=== PATIENT | female | born 1965 | race Caucasian/White ===

== ENCOUNTER → 2019-03-09 14:10 | Outpatient (CLI) | payer OTHER, SELFPAY ==
--- NOTE | ~2019-03-09 | XR_ITS ---
EXAMINATION: XR wrist RT min 3V EXAM DATE: 03/09/2019 14:20 INDICATION: No known recent injury provided at this time. Pain of the right wrist. TECHNIQUE: Right wrist frontal, frontal with ulnar deviation, oblique and lateral projections obtain ed and reviewed. There is no prior study for comparison. FINDINGS: Right wrist scapholunate joint space is maintained. There are no acute fractures or disloca tions identified. There is no subcutaneous gas. The soft tissue is unremarkable. There are no rad iopaque foreign bodies. IMPRESSION: 1. Unremarkable XR wrist RT min 3V exam. Reviewed, dictated and finalized at location A. [facility]
== END ==
PROVIDERS: PCP Family Medicine; Visit Provider Family Medicine
DX: M19.031 Primary osteoarthritis, right wrist (principal)
CPT/HCPCS: 73110

== ENCOUNTER 2019-11-17 15:31 | Outpatient (CLI) | payer OTHER, SELFPAY ==
--- NOTE | ~2019-11-17 | MM_ITS ---
EXAMINATION: MM screening jonathan BI w vonnie HISTORY: Screening mammogram TECHNIQUE: Craniocaudal and mediolateral oblique 3-D tomosynthesis images were obtained and synthetic 2-D images were generated. CAD analysis was submitted and interpreted. COMPARISON: 10/30/2018 diagnostic right digital mammogram 10/21/2018, 10/17/2017, 10/16/2016 bilateral digital screening mammogram examinations BREAST PARENCHYMAL COMPOSITION: The breasts are heterogeneously dense, which may obscure small masses . FINDINGS: Possible new opacity in the posterior outer left breast on CC projection; recommend diagnos tic left mammogram, with ultrasound if required. Otherwise there is no evidence of suspicious mass, calcification, or architectural distortion to sugg est malignancy in either breast. There has been no suspicious interval change. IMPRESSION: 1. Possible new opacity in posterior outer left breast on cc view 2. Diagnostic left mammogram is recommended, with ultrasound if required. BI-RADS Category 0: Incomplete: Needs additional imaging evaluation. Reviewed, dictated and finalized at location A.
== END 2019-11-17 15:32 | disposition home or self-care (01) ==
LOC: ANHIMG 15:33
PROVIDERS: PCP Family Medicine; Visit Provider Obstetrics & Gynecology
DX: Z12.31 Encounter for screening mammogram for malignant neoplasm of breast (principal); R92.8 Other abnormal and inconclusive findings on diagnostic imaging of breast
CPT/HCPCS: 77063; 77067

== ENCOUNTER 2019-12-14 12:37 | Outpatient (CLI) | payer OTHER, SELFPAY ==
--- NOTE | ~2019-12-14 | MMUS_ITS ---
EXAMINATION: MM diagnostic mammo unilat LT, US breast LT limited HISTORY: Possible new opacity in posterior outer left breast on screening craniocaudal view of 020 TECHNIQUE: Additional 3-D tomosynthesis images of the left breast were performed and synthetic 2-D im ages were generated. CAD analysis was submitted and interpreted. High resolution left upper outer marcelino drant and left lower outer quadrant breast ultrasound was performed. COMPARISON: 11/17/2019, 10/21/2018, 10/17/2017 bilateral digital screening mammogram examinations FINDINGS: MAMMOGRAPHIC FINDINGS: No reproducible suspicious mass is detected mammographically. No architectural distortion, malignant calcification, skin thickening or retraction is noted. ULTRASOUND: 12:00 3 cm from nipple: Parallel circumscribed 5 x 10.7 x 6.0 mm sonolucency, without internal vascul arity or suspicious shadowing, likely a cyst 2:00 4 cm from nipple: 3.5 x 4.4 x 7.3 mm sonolucency with through transmission, consistent with mini rodolfo septated cyst 2:00 7 cm from nipple: Cluster of cysts measuring approximately 5.7 x 7.6 x 13.7 mm, with through tra nsmission, posterior enhancement. No suspicious solid lesion or shadowing is evident. IMPRESSION: 1. No mammographic evidence of malignancy 2. Routine mammographic screening is recommended. BI-RADS Category 2: Benign finding(s). Reviewed, dictated and finalized at location A. IMPRESSION: 1. No mammographic evidence of malignancy 2. Routine mammographic screening is recommended. BI-RADS Category 2: Benign finding(s).
== END 2019-12-14 12:38 | disposition home or self-care (01) ==
LOC: ANHIMG 12:41
PROVIDERS: PCP Family Medicine; Visit Provider Obstetrics & Gynecology
DX: R92.8 Other abnormal and inconclusive findings on diagnostic imaging of breast (principal)
CPT/HCPCS: 76642; 77065

== ENCOUNTER → 2020-05-19 16:26 | Outpatient (CLI) | payer OTHER, SELFPAY ==
--- NOTE | ~2020-05-19 | XR_ITS ---
XR ankle LT 2V DATE: 05/19/2020 16:37 INDICATION: Left ankle and foot pain. No injury. TECHNIQUE: AP and lateral views COMPARISON: None FINDINGS: Prominent plantar and posterior calcaneal enthesopathy. No fracture or dislocation of the ankle or disruption of the ankle mortise. No periosteal reaction or bone destruction. IMPRESSION: Prominent plantar and posterior calcaneal enthesopathy Reviewed, dictated and finalized at location B.
== END ==
PROVIDERS: PCP Physician Assistant; Visit Provider Physician Assistant
DX: M77.32 Calcaneal spur, left foot (principal)
CPT/HCPCS: 73600

== ENCOUNTER 2020-12-13 14:38 | Outpatient (CLI) | payer OTHER, SELFPAY ==
--- NOTE | ~2020-12-13 | MM_ITS ---
EXAMINATION: MM screening jonathan BI w vonnie HISTORY: Screening mammogram TECHNIQUE: Craniocaudal and mediolateral oblique 3-D tomosynthesis images were obtained and synthetic 2-D images were generated. CAD analysis was submitted and interpreted. COMPARISON: 12/14/2019 diagnostic left mammogram and limited left breast ultrasound 11/17/2019 bilateral digital screening mammogram 10/30/2018 diagnostic right mammogram and limited right breast ultrasound 10/21/2018, 10/17/2017, 10/16/2016 bilateral digital screening mammogram examinations BREAST PARENCHYMAL COMPOSITION: The breasts are heterogeneously dense, which may obscure small masses . FINDINGS: There is no evidence of suspicious mass, calcification, or architectural distortion to sugg est malignancy in either breast. There has been no suspicious interval change. IMPRESSION: 1. No mammographic evidence of malignancy. 2. Recommend routine screening mammography in one year. BI-RADS Category 1: Negative Reviewed, dictated and finalized at location A.
== END 2020-12-13 14:39 | disposition home or self-care (01) ==
PROVIDERS: PCP Family Medicine; Visit Provider Family Medicine
DX: Z12.31 Encounter for screening mammogram for malignant neoplasm of breast (principal)
CPT/HCPCS: 77063; 77067

== ENCOUNTER 2021-01-30 07:43 | Outpatient (CLI) | payer OTHER, SELFPAY ==
--- NOTE | ~2021-01-30 | DEXA_ITS ---
Bone Density Report Name: Lorene Gould Age: 56 Sex: Female Ethnicity: White Date of : 1965 Indication: postmenopausal; hysterectomy; Referring Provider: CLIFTON BARROS Study: Bone densitometry was performed. Exam Date: January 30, 2021 Accession number: [id number] Bone Density: Region BMD T-score Z-score Classification AP Spine (L1-L4) 0.875 -1.6 -0.4 Osteopenia Femoral Neck (Left) 0.655 -1.7 -0.6 Osteopenia Total Hip (Left) 0.864 -0.6 0.1 Normal Total Hip Bilateral Avg 0.830 -0.9 -0.2 Normal Femoral Neck (Right) 0.675 -1.6 -0.5 Osteopenia Total Hip (Right) 0.795 -1.2 -0.5 Osteopenia World Health Organization criteria for BMD impression classify patients as: Normal (T-score at or above -1.0), Osteopenia (T-score between -1.0 and -2.5), or Osteoporosis (T-score at or below -2.5). 10-year Fracture Risk(1): Major Osteoporotic Fracture 7.5% Hip Fracture 0.7% Reported Risk Factors: [place] (), Neck BMD=0.655, BMI=25.0 (1) FRAX(R) Version 3.08. Fracture probability calculated for an untreated patient. Fracture probability may be lower if the patient has received treatment. Clinical Information Provided by Patient: Has the following medical conditions: Hysterectomy Patient maximum height was 65 Menopause Age: 45 Onset of menses at age 15 Number of children 0 Impression: The patient has low bone mass, based on the Left Femoral Neck T-score. The patient has an estimated ten-year risk of hip fracture of 0.7% and an estimated ten-year risk of major fracture of 7.5%, based on the WHO FRAX algorithm. Discussion: BONE DENSITY IS LOW AT ONE OR MORE SKELETAL SITES. This patient's lowest T-score is low at one or more skeletal sites. It meets the World Health Organization's (WHO) criteria for ?low bone mass? (T-score between -1.0 and -2.5). The patient's 10-year risk of fracture as calculated by FRAX is less than the threshold where pharmacological therapy is recommended by the National Osteoporosis Foundation (NOF). However, all treatment decisions require clinical judgment and consideration of individual patient factors, including patient preferences, comorbidities, previous drug use, risk factors not captured in the FRAX model (e.g., frailty, falls, vitamin D deficiency, increased bone turnover, interval significant decline in bone density) and possible under or overestimation of fracture risk by FRAX. The patient should follow a healthful lifestyle (good nutrition with adequate calcium and vitamin D, and appropriate weight-bearing exercise). Follow-Up: Consider repeating this study in 2 to 3 years to reassess this patient's status, or sooner if there is some new clinical indication. Reported by: MAIKEL on 01/30/2021 8:08:00 AM. Reviewed,
== END 2021-01-30 07:44 | disposition home or self-care (01) ==
PROVIDERS: PCP Family Medicine; Visit Provider Family Medicine
DX: Z78.0 Asymptomatic menopausal state (principal); Z79.890 Hormone replacement therapy; M85.88 Other specified disorders of bone density and structure, other site; M85.852 Other specified disorders of bone density and structure, left thigh; M85.851 Other specified disorders of bone density and structure, right thigh
CPT/HCPCS: 77080

== ENCOUNTER 2021-01-31 15:41 | Outpatient (CLI) | payer OTHER, SELFPAY ==
[2021-01-31 16:07] LABS: Alanine Aminotransferase 17 U/L (4-35); Albumin Level 4.5 g/dL (3.5-5.1); Alkaline Phosphatase 51 U/L (38-126); Anion Gap 5 mmol/L (8-16); Aspartate Amino Transferase 24 U/L (14-36); Bilirubin,Total 0.2 mg/dL (0.2-1.3); Blood Urea Nitrogen 12 mg/dL (7-17); Carbon Dioxide 25 mmol/L (22-30); Chloride 99 mmol/L (98-107); Estimated Glomerular Filt Rate > 60; Glucose 99 mg/dL (65-110); Potassium 3.9 mmol/L (3.4-5.0); Sodium 129 mmol/L (137-145)
[2021-01-31 16:26] LABS: Vitamin D 25 Hydroxy 41.1 ng/mL
== END 2021-01-31 15:42 | disposition home or self-care (01) ==
LOC: ANHLAB 15:43
PROVIDERS: PCP Family Medicine; Visit Provider Family Medicine
DX: M85.80 Other specified disorders of bone density and structure, unspecified site (principal); Z78.0 Asymptomatic menopausal state
CPT/HCPCS: 36415; 80053; 82306; 84443

== ENCOUNTER 2021-02-01 15:42 | Outpatient (CLI) | payer OTHER, SELFPAY ==
[2021-02-01 17:16] LABS: Anion Gap 7 mmol/L (8-16); Blood Urea Nitrogen 13 mg/dL (7-17); Calcium 8.8 mg/dL (8.4-10.2); Carbon Dioxide 26 mmol/L (22-30); Chloride 100 mmol/L (98-107); Estimated Glomerular Filt Rate > 60; Glucose 89 mg/dL (65-110); Potassium 3.8 mmol/L (3.4-5.0); Sodium 133 mmol/L (137-145)
== END 2021-02-01 15:43 | disposition home or self-care (01) ==
LOC: ANHLAB 15:44
PROVIDERS: PCP Family Medicine; Visit Provider Family Medicine
DX: E87.1 Hypo-osmolality and hyponatremia (principal)
CPT/HCPCS: 36415; 80048

== ENCOUNTER 2021-06-16 00:39 | Day surgery (SDC) | payer OTHER, SELFPAY ==
[2021-05-31 15:07] VITALS: BMI 25.8
[2021-06-16 06:55] VITALS: BP 152/85; PULSE 112; RESP 18; TEMP 36.1; O2SAT 100; BMI 29.1
[2021-06-16] MEDS: LACTATED RINGERS 1,000 ML 150 ML IV CONT (07:15)
--- NOTE | 2021-06-16 07:20 | WPDGICN ---
Assessment and Plan Assessment and plan (1) Family hx of colon cancer: Code(s): Z80.0 - Family history of malignant neoplasm of digestive organs Status: Acute Assessment and Plan: Patient has a family history of colon polyps in her mother. Grandparents and uncle of had colon cancer. Plan is for surveillance colonoscopy at this time and consider this a 5 year intervals in the future. GI Consult Note Consult date/time: 06/16/21 07:20 HPI: Lorene Gould is a 56 year old female Presents for screening colonoscopy. Patient's current weight appetite and bowel movements are normal. Patient denies abdominal pain. She has had no bleeding. Family history is significant for an aunt and uncle with colon cancer. Her mother has had colon polyps. Patient presents today for neoplasia screening colonoscopy. [facility] Past Medical History Medical History Hormone replacement therapy (HRT) Osteopenia after menopause Surgical History Surgical History History of bilateral oophorectomy (~06/25/14) History of colonoscopy (~2010) History of hysterectomy (~06/25/14) Status post phlebectomy Family History Family History Other Carcinoma of colon Social History Social History (Updated 05/01/21 @ 10:01 by JHONATAN Lou) Smoking status: Never smoker Alcohol intake: never Substance use: never Substance use type: does not use Living arrangements: alone Spiritual care concerns: No Meds Home Medications and Allergies Home Medications Medication Instructions Recorded Confirmed Type estradiol 2 mg tablet 2 mg PO DAILY 03/09/19 06/16/21 History lisinopril 5 mg tablet See Rx Instructions .ROUTE 03/21/21 06/16/21 Rx .COMPLEX #90 tablet amoxicillin 500 mg capsule 500 mg PO Q8H #21 cap 05/30/21 06/16/21 Rx Allergies Allergy/AdvReac Type Severity Reaction Status Date / Time hydrocodone AdvReac Mild Nausea and Verified 06/16/21 07:04 Vomiting Vital Signs Vital Signs - 24 hr 06/16/21 06:55 Temperature 97.0 F L Pulse Rate 112 H Respiratory Rate 18 Blood Pressure 152/85 H Pulse Oximetry 100 Exam Narrative: physical exam patient is alert. Vital signs are stable. HEENT exam reveals no icterus. Lungs are clear to auscultation and percussion. Heart is without murmur or extra sounds. Abdominal exam bowel sounds are present soft nontender with no organomegaly. Digital external rectal exam is normal.
--- NOTE | 2021-06-16 07:45 | P.PNAN_ITS ---
Anes - Initial Pre Proc Eval Procedure: Operation Date: 06/16/21 08:00 Proposed Procedures p Screening Colonoscopy - Roger Rivas MD Date/Time: 06/16/21 07:45 Surgeon: Roger Rivas MD Pre Op Diagnosis: family hx colon polyps, neoplasm screening Patient Data Age: 56 Gender: F Height: 1.63 m Weight: 77 kg Last Vital Signs Temp 97.0 F L 06/16/21 06:55 Pulse 112 H 06/16/21 06:55 Resp 18 06/16/21 06:55 BP 152/85 H 06/16/21 06:55 Pulse Ox 100 06/16/21 06:55 Allergies Allergy/AdvReac Type Severity Reaction Status Date / Time hydrocodone AdvReac Mild Nausea and Verified 06/16/21 07:04 Vomiting Home Medications Medication Instructions Recorded Confirmed Type estradiol 2 mg tablet 2 mg PO DAILY 03/09/19 06/16/21 History lisinopril 5 mg tablet See Rx Instructions .ROUTE 03/21/21 06/16/21 Rx .COMPLEX #90 tablet amoxicillin 500 mg capsule 500 mg PO Q8H #21 cap 05/30/21 06/16/21 Rx Patient hx anesthesia problems: none Family hx anesthesia problems: none Results Review: All pre-operative results and documents have been reviewed as part of the pre-operative evaluation. [facility] Past Medical History Medical History Hormone replacement therapy (HRT) Osteopenia after menopause Surgical History Surgical History History of bilateral oophorectomy (~06/25/14) History of colonoscopy (~2010) History of hysterectomy (~06/25/14) Status post phlebectomy Family History Family History Other Carcinoma of colon Social History Social History (Updated 05/01/21 @ 10:01 by JHONATAN Lou) Smoking status: Never smoker Alcohol intake: never Substance use: never Substance use type: does not use Living arrangements: alone Spiritual care concerns: No Anes - Eval Final PreProcedure Day of Procedure 06/16/21 07:45 Patient weight: overweight Heart: regular rate and rhythm Lungs: clear to auscultation Airway: Mallampati scale class III Neurological: alert and oriented Last oral intake: >/= 8 hours ASA classification: II Emergent: no Anesthetic plan: proceed Anesthesia type and monitoring: general GIVS and standard monitoring Results Review: All pre-operative results and documents have been reviewed as part of the pre-operative evaluation. Informed Consent: The patient's anesthetic plan and its attendant risks and benefits were discussed with the patient/family/POA. Questions were solicited and answers provided to the satisfaction of the patient/family/POA.
[2021-06-16 08:08] VITALS: BP 96/55; PULSE 77; RESP 13; O2SAT 100
[2021-06-16 08:18] VITALS: BP 130/67; PULSE 74; RESP 16; O2SAT 100
[2021-06-16 08:28] VITALS: BP 126/62; PULSE 74; RESP 16; O2SAT 100
== END 2021-06-16 08:36 | disposition home or self-care (01) ==
PROVIDERS: PCP Family Medicine; Visit Provider Internal Medicine Gastroenterology
PROC: 0DJD8ZZ Inspection of Lower Intestinal Tract, Via Natural or Artificial Opening Endoscopic (ICD-10-PCS; CPT 45378; principal; 2021-06-16 08:00)
DX: Z12.11 Encounter for screening for malignant neoplasm of colon (principal); K64.8 Other hemorrhoids; Z83.71 Family history of colonic polyps; Z79.890 Hormone replacement therapy; Z80.0 Family history of malignant neoplasm of digestive organs
CPT/HCPCS: 45378; J2704; J7120

== ENCOUNTER → 2021-12-13 18:41 | Outpatient (CLI) | payer OTHER, SELFPAY ==
--- NOTE | ~2021-12-13 | XR_ITS ---
EXAMINATION: XR chest 2V 12/13/2021 18:50 INDICATION: Pneumonia. PROCEDURE: 2 View chest COMPARISON: No prior studies for comparison. FINDINGS: The lungs are clear. The cardiomediastinal silhouette is within normal limits. There are no pleural effusions. There is no pneumothorax suspected. IMPRESSION: 1: NO ACUTE CARDIOPULMONARY DISEASE. Reviewed, dictated and finalized at location A.
== END ==
PROVIDERS: PCP Family Medicine; Visit Provider Family Medicine
DX: J18.9 Pneumonia, unspecified organism (principal)
CPT/HCPCS: 71046

== ENCOUNTER 2022-02-03 07:50 | Outpatient (CLI) | payer OTHER, SELFPAY ==
[2022-02-03 08:22] LABS: Basophils Percent Auto 0.3 % (0.2-1.2); Eosinophils Absolute Auto 0.1 K/mm3 (0-0.3); Eosinophils Percent Auto 2.3 % (0-4.4); Hematocrit 37.9 % (37.0-47.0); Hemoglobin 12.8 g/dL (12.0-15.0); Immature Granulocyte Absolute 0.02 K/mm3 (0.00-0.031); Immature Granulocyte Percent A 0.3 % (0-0.5); Lymphocytes Absolute Auto 2.34 K/mm3 (0.9-3.2); Lymphocytes Percent Auto 38.7 % (18.3-44.2); Mean Corpuscular HGB Conc 33.8 g/dl (32-36); Mean Corpuscular Hemoglobin 33.5 pg (26-34); Mean Corpuscular Volume 99.2 fl (80-100); Monocytes Absolute Auto 0.5 K/mm3 (0.1-0.6); Monocytes Percent Auto 7.6 % (2.6-8.5); Neutrophils Absolute Auto 3.1 K/mm3 (1.3-6.7); Neutrophils Percent Auto 50.8 % (45.5-73.1); Platelet Count Result 347 k/mm3 (150-375); Red Blood Count 3.82 M/mm3 (4.2-5.4); Red Cell Distribution Width 12.5 % (11.5-14.5); White Blood Count 6.1 K/mm3 (4.5-10.0)
[2022-02-03 08:43] LABS: Alanine Aminotransferase 40 U/L (6-35); Albumin Level 4.1 g/dL (3.5-5.1); Alkaline Phosphatase 44 U/L (38-126); Anion Gap 5 mmol/L (8-16); Aspartate Amino Transferase 36 U/L (14-36); Bilirubin,Total 0.5 mg/dL (0.2-1.3); Blood Urea Nitrogen 17 mg/dL (7-17); Calcium 8.3 mg/dL (8.4-10.2); Carbon Dioxide 27 mmol/L (22-30); Chloride 104 mmol/L (98-107); Cholesterol 176 mg/dL (0-200); Estimated Glomerular Filt Rate > 60; Glucose 102 mg/dL (65-110); HDL Direct 67 mg/dL; Potassium 4.3 mmol/L (3.4-5.0); Sodium 136 mmol/L (137-145); Triglycerides 70 mg/dL (<150)
[2022-02-03 08:54] LABS: LDL Cholesterol Direct 82 mg/dL
== END 2022-02-03 07:51 | disposition home or self-care (01) ==
LOC: ANHLAB 07:52
PROVIDERS: PCP Family Medicine; Visit Provider Physician Assistant
DX: Z79.899 Other long term (current) drug therapy (principal); Z00.00 Encounter for general adult medical examination without abnormal findings
CPT/HCPCS: 36415; 80053; 80061; 84443; 85025

== ENCOUNTER 2022-02-21 08:03 | Outpatient (CLI) | payer OTHER, SELFPAY ==
[2022-02-21 18:36] LABS: Alanine Aminotransferase 32 U/L (6-35); Albumin Level 4.1 g/dL (3.5-5.1); Alkaline Phosphatase 46 U/L (38-126); Anion Gap 6 mmol/L (8-16); Aspartate Amino Transferase 40 U/L (14-36); Bilirubin,Total 0.3 mg/dL (0.2-1.3); Blood Urea Nitrogen 18 mg/dL (7-17); Calcium 8.9 mg/dL (8.4-10.2); Carbon Dioxide 30 mmol/L (22-30); Chloride 101 mmol/L (98-107); Estimated Glomerular Filt Rate > 60; Glucose 86 mg/dL (65-110); Potassium 4.3 mmol/L (3.4-5.0); Sodium 137 mmol/L (137-145)
== END 2022-02-21 08:04 | disposition home or self-care (01) ==
LOC: ANHGOSHLAB 08:05
PROVIDERS: PCP Family Medicine; Visit Provider Physician Assistant
DX: R74.8 Abnormal levels of other serum enzymes (principal); E87.1 Hypo-osmolality and hyponatremia
CPT/HCPCS: 36415; 80053

== ENCOUNTER 2022-03-12 07:59 | Outpatient (CLI) | payer OTHER, SELFPAY ==
[2022-03-12 19:56] LABS: Alanine Aminotransferase 26 U/L (6-35); Alkaline Phosphatase 46 U/L (38-126); Aspartate Amino Transferase 53 U/L (14-36); Bilirubin,Total 0.3 mg/dL (0.2-1.3)
== END 2022-03-12 08:00 | disposition home or self-care (01) ==
LOC: ANHGOSHLAB 08:00
PROVIDERS: PCP Family Medicine; Visit Provider Physician Assistant
DX: R74.8 Abnormal levels of other serum enzymes (principal)
CPT/HCPCS: 36415; 80076

== ENCOUNTER → 2022-03-17 08:20 | Outpatient (CLI) | payer OTHER, SELFPAY ==
--- NOTE | ~2022-03-17 | US_ITS ---
EXAMINATION: US abdomen limited DATE: 03/17/2022 08:42 INDICATION: Abnormal liver function tests. TECHNIQUE: Multiple grayscale and Doppler ultrasound images of the abdomen were obtained. COMPARISON: CT abdomen and pelvis 03/14/2018 FINDINGS: The visualized portions of the head, body, and tail of the pancreas are normal. The liver i s normal without focal lesion. No liver surface nodularity. There is normal flow in main portal vein. The gallbladder is normal in size and contains gallstones. No gallbladder wall thickening or sonogra phic Ly sign. The common duct is normal and measures 4 mm. IMPRESSION: 1. Cholelithiasis. No evidence of acute cholecystitis. Reviewed, dictated and finalized at location A. T ENGINEER
== END ==
PROVIDERS: PCP Family Medicine; Visit Provider Physician Assistant
DX: R74.8 Abnormal levels of other serum enzymes (principal); K80.20 Calculus of gallbladder without cholecystitis without obstruction
CPT/HCPCS: 76705

== ENCOUNTER 2022-03-19 15:24 | Outpatient (CLI) | payer OTHER, SELFPAY ==
[2022-03-19 18:14] LABS: Hepatitis B Surface Antigen Negative (Negative)
[2022-03-19 18:20] LABS: HAV RESULT Negative (Negative); Hepatitis B Core IgM Result Negative (Negative)
[2022-03-19 18:30] LABS: Hepatitis C Virus Antibody Negative (Negative)
== END 2022-03-19 15:25 | disposition home or self-care (01) ==
LOC: ANHGOSHLAB 15:25
PROVIDERS: PCP Family Medicine; Visit Provider Physician Assistant
DX: R74.8 Abnormal levels of other serum enzymes (principal)
CPT/HCPCS: 36415; 80074

== ENCOUNTER 2022-04-06 15:17 | Outpatient (CLI) | payer OTHER, SELFPAY ==
--- NOTE | ~2022-04-06 | MM_ITS ---
EXAMINATION: MM screening [facility] BI w vonnie HISTORY: Screening mammogram TECHNIQUE: Craniocaudal and mediolateral oblique 3-D tomosynthesis images were obtained and synthetic 2-D images were generated. CAD analysis was submitted and interpreted. COMPARISON: Serial mammogram and ultrasound examinations dating back to 10/21/2018 BREAST PARENCHYMAL COMPOSITION: The breasts are heterogeneously dense, which may obscure small masses . FINDINGS: Approximately 8 mm circumscribed low-density opacity in the posterior mid to upper outer le ft breast. Diagnostic left mammogram and left breast ultrasound examination are recommended. Otherwise there is no evidence of suspicious mass, calcification, or architectural distortion to sug gest malignancy in either breast. There has been no other suspicious interval change. IMPRESSION: 1. 8 mm mass, posterior mid to upper outer left breast 2. Diagnostic left mammogram and left breast ultrasound examination are recommended for better evalua tion BI-RADS Category 0: Incomplete: Needs additional imaging evaluation. Reviewed, dictated and finalized at location A. PATTERN MAKER IMPRESSION: 1. 8 mm mass, posterior mid to upper outer left breast 2. Diagnostic left mammogram and left breast ultrasound examination are recomme nded for better evaluation BI-RADS Category 0: Incomplete: Needs additional imaging evaluation.
== END 2022-04-06 15:18 | disposition home or self-care (01) ==
LOC: ANHIMG 15:20
PROVIDERS: PCP Family Medicine; Visit Provider Obstetrics & Gynecology
DX: Z12.31 Encounter for screening mammogram for malignant neoplasm of breast (principal); R92.8 Other abnormal and inconclusive findings on diagnostic imaging of breast
CPT/HCPCS: 77063; 77067

== ENCOUNTER 2022-04-24 13:11 | Outpatient (CLI) | payer OTHER, SELFPAY ==
--- NOTE | ~2022-04-24 | MMUS_ITS ---
EXAMINATION: MM diagnostic jonathan LT w vonnie, US breast LT limited HISTORY: 8 mm circumscribed low-density opacity in posterior mid to upper left breast was reported on April 06, 2022 screening mammogram TECHNIQUE: Additional 3-D tomosynthesis images of the left breast were performed and synthetic 2-D im ages were generated. CAD analysis was submitted and interpreted. High resolution upper outer quadrant and lower outer quadrant left breast ultrasound was performed. COMPARISON: April 06, 2022 bilateral screening mammogram FINDINGS: MAMMOGRAPHIC FINDINGS: Approximately 6 x 7 mm circumscribed multinodular density is noted in the posterior upper outer left breast (17/85 MLO Tomosynthesis image; 17/78 mL Tomosynthesis image). Approximately 2.5 mm circumscribed rounded opacity is also noted in the upper outer left breast (23/8 5 MLO Tomosynthesis image). Additional masses may be obscured by the heterogeneously dense stroma. ULTRASOUND: 1:00 7 cm from nipple: Approximately 3.5 mm sonolucency, likely a small cyst 2:00 7 cm from nipple: Cluster of cysts measuring approximately 5.9 x 8.3 x 6.1 mm, without internal vascularity or suspicious shadowing. No suspicious solid lesion or shadowing is detected in the upper outer or lower outer quadrants of th e left breast. IMPRESSION: 1. Benign findings 2. Routine annual mammographic screening is recommended. BI-RADS Category 2: Benign finding(s). Reviewed, dictated and finalized at location A. COILER IMPRESSION: 1. Benign findings 2. Routine annual mammographic screening is recommended. BI-RADS Category 2: Benign finding(s).
== END 2022-04-24 13:12 | disposition home or self-care (01) ==
PROVIDERS: PCP Family Medicine; Visit Provider Obstetrics & Gynecology
DX: R92.8 Other abnormal and inconclusive findings on diagnostic imaging of breast (principal)
CPT/HCPCS: 76642; 77061; 77065; G0279

== ENCOUNTER 2022-04-25 15:00 | Outpatient (RCR) | payer OTHER, SELFPAY ==
--- NOTE | 2022-03-26 11:25 | OTOPEVAL1 ---
Assessment and note entered by JEREMIAH Corrigan/Shelbie Evaluation Information Assessment Status Evaluation Diagnosis L medial epicondylitis Subjective Information Patient presents to Outpatient OT with diagnosis of L medial epicondylitis which began 1 month ago. 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 Patient report had a cortisone injection at Dr. Peter's office on 03/21/2022. Reported Pain Level Pain Score 5: Self Report Assessment OT Clinical Summary Lorene is a 57 year old female who presents to outpatient OT with pain over L UE medial epicondyle. Patient reports pain is increased with gripping/grasping tasks at work. 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 Patient would benefit from skilled OT for HEP instruction, UE exercises, manual therapy, use of modalities, splinting PRN in order to promote pain management and increase functional use of L UE. Plan of Care Interventions Therapeutic Exercise,Manual Therapy,Therapeutic Activities,Hot Pack/Cold Pack,Check Out for Orthotic/Pr,Ultrasound,Paraffin OT Services Indicated Yes Treatment Frequency and 1x/week, 4 weeks Duration These treatments will address the objective and functional deficits as defined above. The patient will be advanced safely and appropriately in order for the patient to progress towards his/her prior level of function. Additional exercises will be introduced and as well as a comprehensive home exercise program upon discharge, if needed, ?to ensure carryover of functional gains achieved in the clinic. This treatment plan has been reviewed and agreement upon by the patient.
--- NOTE | 2022-04-25 15:13 | OTOPDC ---
Assessment and note entered by JEREMIAH Corrigan/Shelbie Evaluation Information Assessment Status Discharge Diagnosis L medial epicondylitis Subjective Information Patient presents to Outpatient OT with diagnosis of L medial epicondylitis. Patient has attended x4 appointments with OT. Patient reports there is less pain around the medial epicondyle during gripping/grasping tasks, pushing with L arm, and picking up items with L arm. Reported Pain Level Pain Score 1: Self Report Assessment OT Clinical Summary Lorene is a 57 year old female who presents to outpatient OT for re-evaluation with pain over L UE medial epicondyle. Patient reports decreased pain with lifting objects, pushing objects at work , and gripping/grasping tasks at work. Patient demonstrates a negative medial epicondyle test and some mild palpable tenderness over medial epicondyle which is greatly improved from initial evaluation. No pain with resistive wrist extension or forearm supination. 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 Patient is to be discharged from skilled OT at this time with all goals met and independence with HEP materials. Patient is agreeable to plan. Plan of Care OT Services Indicated No
== END 2022-04-26 08:52 | disposition home or self-care (01) ==
LOC: ANHGOSHOT 15:00
PROVIDERS: PCP Family Medicine; Visit Provider Orthopaedic Surgery
DX: M77.02 Medial epicondylitis, left elbow (principal)
CPT/HCPCS: 97035; 97110; 97140; 97165

== ENCOUNTER 2022-08-06 13:56 | Outpatient (CLI) | payer OTHER, SELFPAY ==
--- NOTE | ~2022-08-06 | US_ITS ---
EXAMINATION: US carotid duplex BI DATE: 08/06/2022 14:24 INDICATION: Carotid bruit TECHNIQUE: Grayscale, color Doppler, and pulsed Doppler images of the cervical carotid arteries were obtained. The degree of vessel stenosis is placed in one of the following categories: normal, <50%, 5 0-69%, >=70% but less than near-occlusion, near-occlusion, or total occlusion. Note that percent sten osis relative to normal distal artery lumen diameter is indirectly measured from velocity measurement s as described by Brayden, et al. Radiology 2003; 229:340-346. Notes: Normal: Peak systolic velocity <125 centimeters/sec and no plaque <50%. Peak systolic velocity <125 ( EDV <40; ICA/CCA PSV ratio <2.0; used these factors only a tandem lesions or low cardiac output or co ntralateral disease) 50-69 %: PSV 125-230 (EDV 40-100; ratio 2-4) >= 70% but less than near occlusion: PSV greater than 230 (EDV > 100; ratio> 4.0) Near Occlusion: PSV that is variable; markedly narrowed lumen Occlusion: Absent flow on color/spectral Doppler and no lumen on jefferson scale. COMPARISON: None. FINDINGS: RIGHT: The right common carotid artery (CCA) peak systolic velocity (PSV) is 120 cm/s. The right internal ca rotid artery (ICA) PSV is 77 cm/s. The right ICA end-diastolic velocity (EDV) is 30 cm/s. The right I CA/CCA PSV ratio is 0.6. The external carotid artery (ECA) PSV is 67 cm/s. There is antegrade flow in the right vertebral artery. LEFT: The left CCA PSV is 143 cm/s. The left ICA PSV is 85 cm/s. The left ICA EDV is 39 cm/s. The left ICA/ CCA PSV ratio is 0.6. The ECA PSV is 4 cm/s. There is antegrade flow in the left vertebral artery. IMPRESSION: 1. Less than 50% stenosis in the right internal carotid artery by sonographic criteria. 2. Less than 50% stenosis in the left internal carotid artery by sonographic criteria. Reviewed, dictated and finalized at location [] IMPRESSION: 1. Less than 50% stenosis in the right internal carotid artery by sonographic sameer norris. 2. Less than 50% stenosis in the left internal carotid artery by sonographic monica sullivan.
== END 2022-08-06 13:57 | disposition home or self-care (01) ==
PROVIDERS: PCP Family Medicine; Visit Provider Family Medicine
DX: R09.89 Other specified symptoms and signs involving the circulatory and respiratory systems (principal); I65.23 Occlusion and stenosis of bilateral carotid arteries
CPT/HCPCS: 93880

== ENCOUNTER 2023-02-21 13:12 | Outpatient (CLI) | payer OTHER, SELFPAY ==
--- NOTE | 2023-02-21 13:19 | ECHO_ITS ---
Patient Info Name: Lorene Gould Age: 58 years : 1965 Gender: Female Ht: 64 in Wt: 136 lbs BSA: 1.68 m2 HR: 71 bpm BP: 130 / 70 mmHg Technical Quality: Good Exam Date: 02/21/2023 1:28 PM Exam Location: Echo Lab Patient Status: Outpatient Admit Date: 02/21/2023 Staff Ordering Physician: Avery Keating MD Attending Provider: Avery eKating MD Referring Physician: Rishabh ROQUE; Exam Type: CA echo doppler color flow Study Info Indications R01.1 - Cardiac murmur, unspecified Complete two-dimensional, color flow and Doppler transthoracic echocardiogram is performed. Summary 1. Complete two-dimensional, color flow and Doppler transthoracic echocardiogram is performed. 2. Left ventricular chamber dimension is normal. 3. Left ventricular systolic function is normal, estimated at 65-70%. 4. The left ventricular diastolic function is normal. 5. E/e' 9 is minimally elevated. 6. Left atrial chamber dimension is mildly enlarged. 7. There is mild aortic valve sclerosis. 8. There is trace aortic valve regurgitation. 9. There is mild to moderate mitral valve regurgitation. 10. There is trace tricuspid valve regurgitation. 11. No pulmonary hypertension, estimated pulmonary arterial systolic pressure is 26 mmHg. 12. There is trace pulmonic regurgitation. Left Ventricle E/e' 9 is minimally elevated. Left ventricular chamber dimension is normal. Left ventricular systolic function is normal, estimated at 65-70%. The left ventricular diastolic function is normal. Right Ventricle Right ventricular systolic function is normal and with normal TAPSE 2.6 cm. Right ventricular chamber dimension is normal. Left Atria Left atrial chamber dimension is mildly enlarged. Right Atria Right atrial chamber dimension is normal. Aortic Valve The aortic valve is trileaflet. There is mild aortic valve sclerosis. There is no aortic valve stenosis. There is trace aortic valve regurgitation. Pulmonic Valve There is trace pulmonic regurgitation. Mitral Valve There is no mitral valve stenosis. There is mild to moderate mitral valve regurgitation. Tricuspid Valve There is trace tricuspid valve regurgitation. No pulmonary hypertension, estimated pulmonary arterial systolic pressure is 26 mmHg. Pericardium/Pleural There is no pericardial effusion. Inferior Vena Cava Normal inferior vena cava with >50% collapse upon inspiration consistent with normal right atrial pressure, 5 mmHg. Aorta The aortic root size at the sinus of Valsalva is normal. Left Ventricular Outflow Tract Name Value Normal LVOT 2D LVOT Diameter 1.9 cm LVOT Doppler LVOT Peak Gradient 5 mmHg LVOT Mean Gradient 3 mmHg LVOT VTI 27 cm LVOT VTI/AV VTI Ratio 0.7 LVOT Stroke Volume 74 ml LVOT CO 4.9 l/min LVOT CI 3.0 l/min/m2 Pulmonic Valve Name Value Normal
== END 2023-02-21 13:13 | disposition home or self-care (01) ==
LOC: ANHCARD 13:13
PROVIDERS: PCP Family Medicine; Visit Provider Family Medicine
DX: R01.1 Cardiac murmur, unspecified (principal); I35.0 Nonrheumatic aortic (valve) stenosis; I35.1 Nonrheumatic aortic (valve) insufficiency; I34.0 Nonrheumatic mitral (valve) insufficiency
CPT/HCPCS: 93306

== ENCOUNTER 2023-08-30 14:56 | Outpatient (CLI) | payer OTHER, SELFPAY ==
[2023-08-30 18:47] LABS: Alanine Aminotransferase 19 U/L (6-35); Alkaline Phosphatase 35 U/L (38-126); Anion Gap 2 mmol/L (4-12); Aspartate Amino Transferase 35 U/L (14-36); Bilirubin,Total 0.4 mg/dL (0.2-1.3); Blood Urea Nitrogen 14 mg/dL (7-17); Calcium 8.8 mg/dL (8.4-10.2); Carbon Dioxide 28 mmol/L (22-30); Chloride 103 mmol/L (98-107); Estimated Glomerular Filt Rate > 60; Glucose 85 mg/dL (65-110); Potassium 4.2 mmol/L (3.4-5.0); Sodium 133 mmol/L (137-145)
== END 2023-08-30 14:57 | disposition home or self-care (01) ==
LOC: ANHGOSHLAB 14:57
PROVIDERS: PCP Family Medicine; Visit Provider Family Medicine
DX: R74.8 Abnormal levels of other serum enzymes (principal)
CPT/HCPCS: 36415; 80053

== ENCOUNTER 2023-12-16 15:02 | Outpatient (CLI) | payer OTHER, SELFPAY ==
--- NOTE | ~2023-12-16 | MM_ITS ---
EXAMINATION: MM screening jonathan BI w vonnie HISTORY: Screening TECHNIQUE: Craniocaudal and mediolateral oblique 3-D tomosynthesis images were obtained and synthetic 2-D images were generated. CAD analysis was submitted and interpreted. COMPARISON: Comparison to multiple prior studies sequentially, with oldest reviewed study dated 11/16. BREAST PARENCHYMAL COMPOSITION: Dense: The breasts are heterogeneously dense, which may obscure small masses FINDINGS: There is no evidence of suspicious mass, calcification, or architectural distortion to sugg est malignancy in either breast. There has been no suspicious interval change. IMPRESSION: 1. No mammographic evidence of malignancy. 2. Recommend routine screening mammography in one year. BI-RADS Category 1: Negative Reviewed, dictated and finalized at location B.
== END 2023-12-16 15:03 | disposition home or self-care (01) ==
LOC: ANHIMG 15:03
PROVIDERS: PCP Family Medicine; Visit Provider Family Medicine
DX: Z12.31 Encounter for screening mammogram for malignant neoplasm of breast (principal)
CPT/HCPCS: 77063; 77067

== ENCOUNTER 2024-05-03 09:15 | Emergency (ER) | payer OTHER, SELFPAY ==
--- NOTE | ~2024-05-03 | XR_ITS ---
Clinical Indication: Chest pain PA and lateral views of the chest: Comparison: 12/13/2021 Findings: The lungs are clear, without evidence of focal consolidation or pleural effusion. Cardiome diastinal silhouette is within normal limits. Bones and soft tissues are unremarkable. Impression: Normal chest. Reviewed, dictated and finalized at location . Impression: Normal chest.
--- NOTE | 2024-05-03 09:19 | ED_ITS ---
HPI - General Adult General Chief complaint: Upper Respiratory Infection Stated complaint: chest pain Time Seen by Provider: 05/03/24 09:19 Source: patient Mode of arrival: ambulatory Limitations: no limitations History of Present Illness HPI narrative: 59-year-old female patient presents to the [facility] with complaints of lower chest pain on the left side that has been intermittent for the past 2 weeks. Patient states she has also had some flu-like symptoms for the past 5 days. Patient states she has had some body aches and chills but denies any fevers that she is aware of. Patient states she has been taking some [id number] cold and flu medication with Sudafed in it. Patient also states that she has been taking some leftover amoxicillin that she had. Patient states she takes amoxicillin here and there to help with sinuses. Denies being on any kind of antihistamines. Patient states that she does have pain to the lower area of the left-sided chest when she takes a deep breath in and states it does wrap around to the back. No shortness of breath at this time. Related Data Home Medications ?Medication ?Instructions ?Recorded ?Confirmed ?Last Taken ?Type calcium 600 mg (as cap PO 03/12/22 02/21/24 Unknown History carbonate)-vitamin D3 12.5 mcg (500 unit) capsule (Calcium with Vit D3) amoxicillin 875 mg tablet mg 05/03/24 Unknown History estradiol 2 mg tablet mg 05/03/24 Unknown History Allergies Allergy/AdvReac Type Severity Reaction Status Date / Time hydrocodone AdvReac Mild Nausea and Verified 02/21/24 15:14 Vomiting Review of Systems Review of Systems: CONSTITUTIONAL: Denies fever, Positive body aches am chills, denies sweats. EYES: Denies visual changes, redness, or discharge. ENT: positive rhinorrhea, congestion, denies sore throat, or otalgia. CARDIOVASCULAR: positive left-sided lower chest pain, denies palpitations, or edema. RESPIRATORY: positive cough with intermittent dyspnea. GASTROINTESTINAL: Denies abdominal pain, nausea, vomiting, or diarrhea. GENITOURINARY: Denies dysuria or hematuria. SKIN: Denies rash or itching. MUSCULOSKELETAL: Denies back pain, joint pain, or myalgia. NEUROLOGIC: Denies headache, numbness, or weakness. PSYCHIATRIC: Denies anxiety or depression. [facility] Past Medical History Medical History Shingles RLL pneumonia Family hx of colon cancer Osteopenia after menopause Hormone replacement therapy (HRT) Surgical History Surgical History Status post phlebectomy History of colonoscopy (~2010) History of bilateral oophorectomy (~06/25/14) History of hysterectomy (~06/25/14) Family History Family History Other Carcinoma of colon Social History Social History Social History: Caffeine-none Smoking status: Never smoker Alcohol intake: never Substance use: never Substance use type: does not use Lack of Transportation: No Lack of Food: Never True Current Housing: I Have Housing Concerned About Future Housing: No Difficulty Paying Gas/Electric Bills: No Difficulty Paying for Meds: No Currently Unemployed: No Education: High School Diploma/GED Difficulty w/ Childcare or Family Care: No Living arrangements: alone Spiritual care concerns: No Comments At the time of my signature I agree with nursing past medical history, surgical, social, and family history. There is no relevant family history pertinent to the presenting complaint. Exam Narrative: GENERAL: Well-appearing, well-nourished, and in no acute distress. HEAD: Normocephalic, atraumatic. EYES: PERRLA and EOMI. ENT: Nares clear, no rhinorrhea or epistaxis. Mucous membranes moist. posterior pharynx with no erythema, tonsillar enlargement, exudates or lesions present. Bilateral TMs are clear no erythema or foreign bodies the canal. NECK: Supple. No lymphadenopathy CHEST: Clear to auscultation. No respiratory distress. HEART: Regular rate and rhythm. No murmur heard. Normal peripheral pulses. ABDOMEN: Soft, nontender, nondistended, normal active bowel sounds. EXTREMITIES: Normal range of motion. No edema. SKIN: Warm, dry, no rash. NEURO: No focal deficits. Alert and oriented x3. Course Course Level of Care: Express Care Visit Reevaluation(s) Reevaluation #1: Re-evaluated patient and notified her that her x-ray is negative for any pneumonia. Her point of care testing for COVID and flu have also come up negative. Discussed with her I do not see any evidence of a bacterial infection at this time. Her blood pressure was retaken manually it was 150/76. Discussed with patient that her EKG was normal and at this time I am not finding any cause for the chest pain. Discussed with her that this could be a virus. Discussed w ith patient if her chest pain or shortness of breath worsens she would need to go to the ER for further evaluation otherwise she can call her primary doctor tomorrow. Patient is encouraged to continue taking her blood pressure medications and highly recommend that she only used some tblv-[id number]-[id number] corciden bp for her cold symptoms at this time. Patient verbalized understanding denies any other questions or concerns at this time. Date: 05/03/24 Time: 10:05 Vital Signs Vital signs: Vital Signs Temperature 36.3 C L 05/03/24 09:30 Pulse Rate 105 H 05/03/24 09:30 Respiratory Rate 16 05/03/24 09:30 Blood Pressure 207/74 H 05/03/24 09:30 Pulse Oximetry 100 05/03/24 09:30 Temperature 36.3 C L 05/03/24 09:30 Pulse Rate 105 H 05/03/24 09:30 Respiratory Rate 16 05/03/24 09:30 Blood Pressure 207/74 H 05/03/24 09:30 Pulse Oximetry 100 05/03/24 09:30 Vital signs reviewed. Medical Decision Making MDM Narrative Medical decision making narrative: Plan care patient is to check an EKG since she is complaining of chest pain and her blood pressure is high on arrival. We will also most likely check an x- ray to rule out pneumonia and swab her today for influenza and COVID. Differential Diagnosis Differential Diagnosis: Differential diagnosis: Allergic rhinitis, chronic sinusitis, tonsillitis, acute sinusitis, infectious mononucleosis, seasonal influenza, pertussis, diphtheria, meningococcal disease, viral syndrome, viral bronchitis, RSV, COVID- 19 Vital Signs Vital Signs: Vital Signs Temperature 36.3 C L 05/03/24 09:30 Pulse Rate 105 H 05/03/24 09:30 Respiratory Rate 16 05/03/24 09:30 Blood Pressure 207/74 H 05/03/24 09:30 Pulse Oximetry 100 05/03/24 09:30 Temperature 36.3 C L 05/03/24 09:30 Pulse Rate 105 H 05/03/24 09:30 Respiratory Rate 16 05/03/24 09:30 Blood Pressure 207/74 H 05/03/24 09:30 Pulse Oximetry 100 05/03/24 09:30 Imaging Data Radiologist's impression: Close Chest X-Ray (Signed) Abraham Montes - 05/03/24 Launch?[facility] [address] [address] XRay Report Signed Patient: Lorene Gould : 1965 MR#: [id number] Age: 59 Acct:[id number] Loc: [facility] ADM Date: 05/03/24Attending Dr: Ordering Physician: Denise Werner APRN Date of Service: 05/03/24 Procedure(s): XR chest 2V Accession Number(s): [id number] cc: Avery Keating MD; Denise Werner ATTORNEY [employer]YER~ Clinical Indication: Chest pain PA and lateral views of the chest: Comparison: 12/13/2021 Findings: The lungs are clear, without evidence of focal consolidation or pleural effusion. Cardiomediastinal silhouette is within normal limits. Bones and soft tissues are unremarkable. Impression: Normal chest. Reviewed, dictated and finalized at [facility]. Please be advised this is a medical document. It is intended for [id number] communication. It is written in medical language and may contain unfamiliar abbreviations or verbiage. Medical documents are intended to carry relevant information, facts as evident, and the clinical opinion of the practitioner at the time of the encounter. This report may have been done utilizing a voice recognition system. Attempts have been made to correct errors. However, there may be uncorrected grammatical, spelling, and recognition errors present. The file time of this note does not necessarily represent the time of service. Dictated By: Abraham Montes MD 05/03/24 0954 Signed By: <Electronically signed by Abraham Montes MD in OV> ECG Data EKG #1: Attestation: I personally reviewed and interpreted this ECG as follows: ECG completion date: 05/03/24 ECG completion time: 09:38 Prior ECG tracings: not available for review Interpretation: Sinus rhythm. Normal ECG. Unconfirmed report. That rate: 87 TX interval: 132 QRS duration: 82 QT/ QTC: 320/364 P- R- T axis: 42, 53, 69 EKG Interpretation: normal rate Critical Care Time Critical Care Time Critical Care Time: No Discharge Plan Discharge Clinical Impression: Viral URI, Chest pain of unknown etiology Patient Disposition: Home, Self-Care Condition: Stable Instructions: Antibiotic Form, Viral Syndrome (ED) Additional Instructions: Viral illness may last between 7-12days; antibiotic is NOT recommended at this time. Recommend antihistamine such as Benadryl at night time and Claritin/Zyrtec/Marylin during the day Cough syrup may cause drowsiness; avoid driving or take it at night time. may use wnhb-[id number] course Coricidin BP for cold symptoms. Also, recommend symptomatic treatment includes: rest, fluids, and increase humidity of the air at home. Recommend Acetaminophen or nonsteroidal anti-inflammatory agents (NSAIDs) as directed in the bottle to reduce fever and/pain/headache. Avoid smoking/second-hand smoke. Limit visits to areas with large crowds. Please schedule a follow-up visit with your personal physician for further evaluation and treatment within 3-5days. Including recheck and discussion of your blood pressure. If your symptoms persist, change or worsen significantly before you can contact your personal physician then please, without delay, go to the emergency department for further evaluation. Patient Language: Swiss Prescriptions: No Action amoxicillin 875 mg tablet estradiol 2 mg tablet fluticasone propionate 50 mcg/actuation spray,suspension 2 spray intranasal DAILY Qty: 42 3RF Rx Instructions: administer into each nostril estradiol 1 mg tablet 1 mg PO DAILY Qty: 90 3RF amoxicillin 500 mg capsule 500 mg PO Q8H Qty: 21 1RF aspirin 81 mg tablet,delayed release (DR/EC) 81 mg PO DAILY Qty: 90 0RF calcium carbonate-vitamin D3 [Calcium 600 with Vitamin D3] 600 mg-12.5 mcg (500 unit) capsule PO lisinopril 5 mg tablet See Rx Instructions .ROUTE .COMPLEX Qty: 90 1RF Dose Instruction: Take 1 tablet by mouth once daily Rx Instructions: Take 1 tablet by mouth once daily Follow-up/Referrals: Avery Keating MD [Primary Care Provider] - Time of Disposition: 10:05
--- NOTE | 2024-05-03 09:26 | ECG_ITS ---
Test Date: 2024-05-03 08:37:30 Measurements Intervals [place] Rate: 87 P: 42 RI: 132 QRS: 53 QRSD: 82 T: 69 QT: 320 QTc: 386 Interpretive Statements SINUS RHYTHM No previous ECG available for comparison Electronically Signed On 05-04-2024 11:09:23 CDT by Guy Rodríguez M.D.
[2024-05-03 09:30] VITALS: BP 207/74; PULSE 105; RESP 16; TEMP 36.3; O2SAT 100
[2024-05-03 09:59] LABS: EDCOVIDSCREEN Negative (Negative); EDINFLUASCREEN Negative (Negative); EDINFLUBSCREEN Negative (Negative)
[2024-05-03 10:04] VITALS: BP 150/76
== END 2024-05-03 10:14 | disposition home or self-care (01) ==
PROVIDERS: Emergency Provider Nurse Practitioner Family; PCP Family Medicine
DX: J06.9 Acute upper respiratory infection, unspecified (principal); R07.9 Chest pain, unspecified; Z20.822 Contact with and (suspected) exposure to COVID-19; M85.80 Other specified disorders of bone density and structure, unspecified site
CPT/HCPCS: 71046; 87426; 87804; 93005; 99213; G0463

== ENCOUNTER 2024-08-20 11:44 | Outpatient (CLI) | payer OTHER, SELFPAY ==
--- NOTE | ~2024-08-20 | XR_ITS ---
HISTORY: R07.89 - Other chest pain COMPARISON: 05/03/2024 TECHNIQUE: 3 views of the left ribs were performed along with a PA and lateral of the chest FINDINGS: No acute displaced fracture is appreciated. Bone mineralization is age-appropriate. The cardiomediastinal silhouette is unremarkable. The lungs are clear. IMPRESSION: No acute or subacute displaced fracture within the left ribs. The lungs are clear. Reviewed, dictated and finalized at location A.
== END 2024-08-20 11:45 | disposition home or self-care (01) ==
LOC: GOSHIMG 11:44
PROVIDERS: PCP Family Medicine; Visit Provider Family Medicine
DX: R07.89 Other chest pain (principal)
CPT/HCPCS: 71046; 71100

== ENCOUNTER 2024-11-23 14:16 | Outpatient (CLI) | payer OTHER, SELFPAY ==
--- NOTE | ~2024-11-23 | XR_ITS ---
EXAMINATION: XR shoulder RT min 2V, 11/23/2024 14:25 CDT HISTORY: Pain in right shoulder x 1 week, no inj, no surg COMPARISON: No comparisons available. Findings: No acute fracture or malalignment. No significant degenerative changes. Soft tissues unremarkable. Impression: No acute fracture or malalignment. Reviewed, dictated and finalized at location P. Impression: No acute fracture or malalignment.
== END 2024-11-23 14:17 | disposition home or self-care (01) ==
LOC: GOSHIMG 14:16
PROVIDERS: PCP Family Medicine; Visit Provider Nurse Practitioner Family
DX: M25.511 Pain in right shoulder (principal)
CPT/HCPCS: 73030

== ENCOUNTER 2025-01-25 09:51 | Outpatient (CLI) | payer OTHER, SELFPAY ==
--- NOTE | ~2025-01-25 | XR_ITS ---
[[id number] ] INDICATION: Chest pain TECHNIQUE: Frontal projection of the upper right ribs, frontal projection of the lower right ribs, oblique projection of all the right ribs, frontal inspiratory chest x-ray for interpretation. FINDINGS: There are no displaced rib fractures identified. There are no soft tissue abnormality seen. The lungs are clear. IMPRESSION: 1:No acute displaced rib fractures. Reviewed, dictated and finalized at location I. 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
== END 2025-01-25 09:52 | disposition home or self-care (01) ==
PROVIDERS: PCP Family Medicine; Visit Provider Nurse Practitioner Family
DX: R07.89 Other chest pain (principal)
CPT/HCPCS: 71101

== ENCOUNTER 2025-02-01 13:37 | Outpatient (CLI) | payer OTHER, SELFPAY ==
--- NOTE | ~2025-02-01 | MM_ITS ---
EXAMINATION: MM screening jonathan BI w vonnie HISTORY: Screening. TECHNIQUE: Craniocaudal and mediolateral oblique 3-D tomosynthesis images were obtained and synthetic 2-D images were generated. CAD analysis was submitted and interpreted. COMPARISON: Multiple older prior studies dating back to 2019. BREAST PARENCHYMAL COMPOSITION: Dense: The breasts are heterogeneously dense. This may obscure small masses. FINDINGS: There are findings consistent with the known breast cysts. No suspicious masses are seen. There are no suspicious calcifications. No unexplained architectural distortion is seen. There are no skin or nipple abnormalities identified. There is no adenopathy seen on the images submitted. IMPRESSION: No mammographic evidence to suggest malignancy is seen. The patient may return to screening mammography as per ACR guidelines. BI-RADS 2 - Benign. Reviewed, dictated and finalized at location B. [employer]
== END 2025-02-01 13:38 | disposition home or self-care (01) ==
LOC: ANHFOHIMG 13:39
PROVIDERS: PCP Family Medicine; Visit Provider Family Medicine
DX: Z12.31 Encounter for screening mammogram for malignant neoplasm of breast (principal)
CPT/HCPCS: 77063; 77067